=== PATIENT | female | born 1985 | race Caucasian/White ===

== ENCOUNTER 2017-01-20 08:41 | Day surgery (SDC) | payer SELFPAY, BC ==
[~2017-01-20 08:41] MED LIST: Bupivacaine 0.25%/EPINEPHrine 1:200,000 10 ML SDV ONE
[2017-01-20] MEDS ORDERED: Bupivacaine 0.25%/EPINEPHrine 1:200,000 10 ML SDV INJECT ONE (09:00)
--- NOTE | 2017-01-20 09:03 | PCM.PREANE ---
Preanesthetic Assessment - Anesthesia/Transfusion/Family Hx Anesthesia History: Prior Anesthesia Without Reaction Family History of Anesthesia Reaction: No Transfusion History: No Prior Transfusion(s) - Review of Systems General: No Symptoms Pulmonary: No Symptoms Cardiovascular: No Symptoms Gastrointestinal: No symptoms Neurological: No Symptoms Other: Reports: None - Physical Assessment Height: 1.75 m Weight: 120.202 kg ASA Class: 2 Mental Status: Alert & Oriented x3 Airway Class: Mallampati = 2 Dentition: Reports: Normal Dentition Thyro-Mental Finger Breadths: 3 Mouth Opening Finger Breadths: 3 ROM/Head Extension: Full Lungs: Clear to auscultation, Normal respiratory effort Cardiovascular: Regular Rate, Regular Rhythm - Allergies Allergies/Adverse Reactions: Allergies Allergy/AdvReac Type Severity Reaction Status Date / Time hydrocodone Allergy Chest Pain Verified 09/02/16 10:16 morphine Allergy Chest Pain Verified 09/02/16 10:16 - Blood Blood Available: No - Anesthesia Plan Pre-Op Medication Ordered: None - Acknowledgements Anesthesia Type Planned: General Anesthesia Pt an Appropriate Candidate for the Planned Anesthesia: Yes Alternatives and Risks of Anesthesia Discussed w Pt/Guardian: Yes Pt/Guardian Understands and Agrees with Anesthesia Plan: Yes PreAnesthesia Questionnaire - Past Health History Medical/Surgical History: Denies Medical/Surgical History HEENT History: Reports: None Cardiovascular History: Reports: High Cholesterol Respiratory History: Reports: None Gastrointestinal History: Reports: GERD Genitourinary History: Reports: None 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: Musculoskeletal History: Reports: Back Pain, Chronic, Neck Pain, Chronic, Other (See Below) (shoulder pain) Neurological History: Reports: Migraines Psychiatric History: Reports: Anxiety, Depression Endocrine/Metabolic History: Reports: Obesity/BMI 30+ (MBI 39.1) Dermatologic History: Reports: Eczema - Past Surgical History Head Surgeries/Procedures: Reports: None GI Surgical History: Reports: Cholecystectomy Female Surgical History: Reports: Section (x4), Hysterectomy - SUBSTANCE USE Smoking Status *Q: Never Smoker Second Hand Smoke Exposure: No Recreational Drug Use History: No - HOME MEDS Home Medications: Home Meds Omeprazole 40 cap PO DAILY 04/22/16 [History] buPROPion [Wellbutrin XL] 150 mg PO DAILY 01/16/17 [History] - CURRENT (IN HOUSE) MEDS Current Meds: Current Medications Hydrocodone Bitart/Acetaminophen ([place] 325-5 Mg) 1 tab PO Q4H PRN PRN Reason: Pain Lactated Ringer's (Ringers, Lactated) 1,000 mls @ 125 mls/hr IV ASDIRECTED MAHAD Cefazolin Sodium/Dextrose 2 gm (/ Premix) 50 mls @ 100 mls/hr IV ONETIME ONE Stop: 01/20/17 10:29 Discontinued Medications Bupivacaine HCl/Epinephrine Bitart (Marcaine 0.25%/Epinephrine 1:200,000) 20 ml INJECT ONETIME ONE Stop: 01/20/17 09:01 Bupivacaine HCl/Epinephrine Bitart (Marcaine 0.25%/Epinephrine 1:200,000) Confirm Administered Dose 50 ml .ROUTE .STK-MED ONE Stop: 01/20/17 07:34
[2017-01-20] MEDS: Lactated Ringers 1,000 ML IV SCH ×2 (09:11→18:32)
[2017-01-20] MEDS ORDERED: Lidocaine 2% 5 ML SDV ONE (09:45)
[2017-01-20] MEDS ORDERED: Ondansetron 4 MG/2 ML SDV ONE (09:45)
[2017-01-20] MEDS ORDERED: Midazolam 1 MG/ML 2 ML SDV ONE (09:45)
[2017-01-20] MEDS ORDERED: fentaNYL 250 MCG/5 ML SDV ONE (09:45)
[2017-01-20] MEDS ORDERED: Propofol 200 MG/20 ML SDV ONE (09:45)
[2017-01-20] MEDS ORDERED: Dexamethasone 4 MG/ML 5 ML MDV ONE (09:45)
[2017-01-20] MEDS ORDERED: diphenhydrAMINE 50 MG/ML SDV ONE (09:53)
[2017-01-20] MEDS ORDERED: ceFAZolin 2 GM in Premix Bag 1 BAG IV ONE (10:00)
[2017-01-20] MEDS ORDERED: HYDROmorphone 2 MG/ML Syringe ONE ×2 (11:07→11:38)
[2017-01-20] MEDS ORDERED: Rocuronium 10 MG/ML 10 ML Syringe ONE (11:07)
[2017-01-20] MEDS ORDERED: Scopolamine 1.5 MG Transdermal Patch ONE (11:22)
[2017-01-20] MEDS: fentaNYL 100 MCG/2 ML SDV IVPUSH PRN ×3 (14:45→15:05)
[2017-01-20] MEDS: Acetaminophen/HYDROcodone 325-5 MG Tab PO PRN (15:38)
[2017-01-20] MEDS: Ondansetron 4 MG/2 ML SDV IVPUSH PRN (15:59)
[2017-01-20] MEDS ORDERED: Prochlorperazine 5 MG in Sodium Chloride 0.9% 50 ML IV ONE (16:00)
--- NOTE | 2017-01-20 17:35 | PCM.POSTAN ---
POST ANESTHESIA ASSESSMENT - MENTAL STATUS Mental Status: alert, oriented - RESPIRATORY Respiratory Status: respiratory rate WNL, airway patent, O2 saturation stable - CARDIOVASCULAR CV Status: pulse rate WNL, blood pressure stable - GASTROINTESTINAL GI Status: nauseau - POST OP HYDRATION Hydration Status: adequate & stable
--- NOTE | 2017-01-20 17:36 | PCM48HPAN ---
Post Anesthesia Note - EVALUATION WITHIN 48HRS OF ANESTHETIC Vital Signs in Normal Range: Yes Patient Participated in Evaluation: Yes Respiratory Function Stable: Yes Airway Patent: Yes Cardiovascular Function Stable: Yes Hydration Status Stable: Yes Pain Control Satisfactory: Yes Nausea and Vomiting Control Satisfactory: Yes Mental Status Recovered: Yes
[2017-01-20] MEDS ORDERED: Prochlorperazine 10 MG/2 ML SDV IVPUSH PRN (18:32)
--- NOTE | 2017-01-20 19:26 | PCM.SN ---
- Free Text/Narrative Note: nausea not controlled thus admitting to the floor for sds status for improved control prior to discharge.
[2017-01-21] MEDS: Ondansetron 4 MG/2 ML SDV IVPUSH PRN (00:16)
[2017-01-21] MEDS: Acetaminophen/HYDROcodone 325-5 MG Tab PO PRN ×2 (00:18→08:53)
[2017-01-21] MEDS: Lactated Ringers 1,000 ML IV SCH (00:20)
[2017-01-21 05:24] VITALS: BP 128/58
--- NOTE | 2017-01-21 10:18 | PCM.SN ---
- Free Text/Narrative Note: Much improved and ready for discharge. Feeling well without nausea this am. Dressings removed. Excellent healing and skin flap viability. Home on [place] and zoan. Will call with any issues or concerns.
--- NOTE | 2017-01-21 10:22 | PCM48HPAN ---
Post Anesthesia Note - EVALUATION WITHIN 48HRS OF ANESTHETIC Vital Signs in Normal Range: Yes Patient Participated in Evaluation: Yes Respiratory Function Stable: Yes Airway Patent: Yes Cardiovascular Function Stable: Yes Hydration Status Stable: Yes Pain Control Satisfactory: Yes Nausea and Vomiting Control Satisfactory: Yes Mental Status Recovered: Yes - COMMENTS/OBSERVATIONS Free Text/Narrative:: Pt was kept overnight as observation over continued N/V that was unresponsive to IV treatment. This morning she is doing well and looking forward to going home.
--- NOTE | 2017-01-23 12:29 | PCM.OPNOTE ---
- General Post-Op/Procedure Note Date of Surgery/Procedure: 01/20/17 Operative Procedure(s): bilaateral reduction mammoplasty Pre Op Diagnosis: macromastia Post-Op Diagnosis: Same Anesthesia Technique: General ET Tube, Local Primary Surgeon: Zoë Gonzalez Entry Level Automotive Technician: Sherri Zarate Complications: None Condition: Good
--- NOTE | 2017-01-23 21:08 | OR ---
SURGEON: DUANE HERRERA MD DATE OF PROCEDURE: 01/20/2017 PREOPERATIVE DIAGNOSIS: Bilateral macromastia. POSTOPERATIVE DIAGNOSIS: Bilateral macromastia. PROCEDURE: Bilateral reduction mammoplasty - cosmetic. INDICATIONS: Ms. Norwood is a 31-year-old female with bilateral gigantomastia. Unfortunately, her insurance policy has a preclusion on breast reduction. She does meet all criteria for medical necessity. We discussed risks and benefits of reduction mammoplasty and will do so under a cosmetic rate. Risks and benefits of reduction mammoplasty were discussed with her and she was in agreement to proceed. Risks were including, but not limited to, bleeding, infection, damage to underlying or overlying structures, possible need for future interventions and possible scarring. NARRATIVE: After informed consent were obtained and placed on the chart, the patient was brought to the operating theater and laid in the supine position. After adequate general anesthetic was obtained, the area was prepped and draped in a normal fashion. Time-out was completed to confirm side and site. Attention was then paid to the markings made in the preanesthesia area for a bilateral inferior pedicle with Woodruff-pattern reduction. The nipple-areolar complex positions were marked around the nipple itself. Once adequately marked attention was then paid to dissection of the skin about 1 cm thick tapering to the chest wall medially and [address] to the chest wall laterally. Slightly thicker flaps were undertaken due to the size of the patient. Once adequately dissected, attention was then paid to isolation of the pedicle. Once this was completed, the intervening breast tissue was removed on the right and sent for pathology due to the presence of a cyst here. Once that was adequately excised and measured to be around 4800 grams, attention was then paid to the left side in a similar fashion. The dissection was undertaken with removal around 1300 grams. Once this was completed, the meticulous hemostasis had been obtained, the area was copiously irrigated and the new pedicle was put in place closing with evangelista. Once this was completed, the patient was sat up, symmetry was appreciated and the new area of the nipple-areolar complex was marked. Once this was completed, the patient was sat back in the supine position. The nipple-areolar complex was dissected and then stapled in place. Once adequate stapled in place, symmetry was again appreciated and then closure was undertaken using deep 3-0 Monocryl stitches and a running 4-0 subcuticular for the skin. Once adequately completed, attention was then paid to dressings with Steri-Strips, fluffs and a compression bra. The patient tolerated the procedure well. All counts and needles were correct at the end the case. FOLLOWUP INSTRUCTIONS: The patient will be maintained in the hospital for nausea control and was given a prescription for pain control and nausea medication as needed. HEMICHAEL / JOSE /[id number] MTDD
== END 2017-01-21 10:18 | disposition home or self-care (01) ==
LOC: MW.SDS 08:41 → MW.MS 17:56 → MW.SDS 01-21 10:18
PROVIDERS: ATTEND Plastic Surgery
PROC: 0H0V0ZZ Alteration of Bilateral Breast, Open Approach (ICD-10-PCS; principal; 2017-01-20)
DX: D24.1 Benign neoplasm of right breast (principal); N62 Hypertrophy of breast; K21.9 Gastro-esophageal reflux disease without esophagitis; F41.9 Anxiety disorder, unspecified; F32.9 Major depressive disorder, single episode, unspecified; E66.9 Obesity, unspecified; Z79.899 Other long term (current) drug therapy; Z88.5 Allergy status to narcotic agent; Z90.49 Acquired absence of other specified parts of digestive tract; Z90.710 Acquired absence of both cervix and uterus; Z98.890 Other specified postprocedural states; Z68.39 Body mass index [BMI] 39.0-39.9, adult
CPT/HCPCS: 19120; 19318; A9270; J0780; J1100; J1170; J1200; J2250; J2405; J3010; J7050; J7120; 00402; 88305; J2704

== ENCOUNTER 2017-05-22 13:10 | Day surgery (SDC) | payer BC ==
[2017-05-22] MEDS ORDERED: Ketorolac 30 MG/ML SDV IVPUSH ONE (14:12)
[2017-05-22] MEDS ORDERED: Sodium Chloride 0.9% 1,000 ML IV ONE (14:12)
--- NOTE | 2017-05-22 14:13 | EDM.PDOC ---
ED HPI GENERAL MEDICAL PROBLEM - General Chief Complaint: Abdominal Pain Stated Complaint: APPENDICITIS Time Seen by Provider: 05/22/17 13:37 Source of Information: Reports: Patient History Limitations: Reports: No Limitations - History of Present Illness INITIAL COMMENTS - FREE TEXT/NARRATIVE: History of present illness: [31-year-old female sent over by [facility] secondary to concerns of potential appendicitis. Patient acute she has had right lower quadrant pain radiating up to the umbilicus for approximately 1 week off and on in a sporadic fashion but now the pain is continuous. Patient also indicates it hurts more when it is being pressed but especially with the pressures relieved. Consist with rebound tenderness] Review of systems: As per history of present illness and below otherwise all systems reviewed and negative. Past medical history: As per history of present illness and as reviewed below otherwise noncontributory. Surgical history: As per history of present illness and as reviewed below otherwise noncontributory. Social history: No reported history of drug or alcohol abuse. Family history: As per history of present illness and as reviewed below otherwise noncontributory. Physical exam: HEENT: Atraumatic, normocephalic, pupils reactive, negative for conjunctival pallor or scleral icterus, mucous membranes moist, throat clear, neck supple, nontender, trachea midline. Lungs: Clear to auscultation, breath sounds equal bilaterally, chest nontender. Heart: S1S2, regular, negative for clicks, rubs, or JVD. Abdomen: Soft, exuberant abdomen that is tender in the right lower quadrant more specifically with rebound tenderness noted. Negative for masses or hepatosplenomegaly. Negative for costovertebral tenderness. Pelvis: Stable nontender. Genitourinary: Deferred. Rectal: Deferred. Extremities: Atraumatic, negative for cords or calf pain. Neurovascular unremarkable. Neuro: Awake, alert, oriented. Cranial nerves II through XII unremarkable. Cerebellum unremarkable. Motor and sensory unremarkable throughout. Exam nonfocal. Dr. Zaragoza at bedside is evaluating patient in dialogue with him about the plan of care. Patient indicates that she would rather have surgical resolution as opposed to conservative management Dr. Zaragoza agrees to do appendectomy. Diagnostics: [CBC, CMP, lipase amylase, urine hCG] Therapeutics: [IV fluid, Toradol] Impression: [Appendicitis] Plan: [Admit to Dr. Zaragoza for appendectomy] Definitive disposition and diagnosis as appropriate pending reevaluation and review of above. Right Lower Abdomen Pain Score (Numeric/FACES): 6 - Related Data Allergies Allergy/AdvReac Type Severity Reaction Status Date / Time morphine AdvReac Mild Chest Pain Verified 05/22/17 13:35 Home Meds: Home Meds . 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: Musculoskeletal History: Reports: Back Pain, Chronic, Neck Pain, Chronic, Other (See Below) (shoulder pain) Neurological History: Reports: Migraines Psychiatric History: Reports: Anxiety, Depression Endocrine/Metabolic History: Reports: Obesity/BMI 30+ (MBI 39.1) Dermatologic History: Reports: Eczema - Past Surgical History Head Surgeries/Procedures: Reports: None GI Surgical History: Reports: Cholecystectomy Female Surgical History: Reports: Section (x4), Hysterectomy Social & Family History - Family History Family Medical History: Noncontributory - Tobacco Use Smoking Status *Q: Never Smoker Second Hand Smoke Exposure: No - Caffeine Use Caffeine Use: Reports: None - Recreational Drug Use Recreational Drug Use: No Drug Use in Last 12 Months: No ED ROS GENERAL - Review of Systems Review Of Systems: See Below (See history of present illness) ED EXAM, GENERAL - Physical Exam Exam: See Below (See history of present illness) Course - Vital Signs Last Recorded V/S: Last Vital Signs Temp 36.8 C 05/22/17 13:33 Pulse 76 05/22/17 16:16 Resp 18 05/22/17 16:24 BP 140/86 05/22/17 16:16 Pulse Ox 98 05/22/17 16:24 - Orders/Labs/Meds Orders: Active Orders 24 hr Category Date Time Status Communication Order [RC] ROUTINE Care 05/22/17 16:56 Active Verify Patient Consent Obtain [RC] ASDIRECTED Care 05/22/17 16:21 Active Verify Patient Consent Obtain [RC] ASDIRECTED Care 05/22/17 16:55 Active Nothing per Oral After Midnight Diet [DIET] Diet 05/22/17 Breakfast Active Nothing per Oral Now Diet [DIET] Diet 05/22/17 Breakfast Active Lactated Ringers [Ringers, Lactated] 1,000 ml Med 05/22/17 16:30 Active IV ASDIRECTED Lactated Ringers [Ringers, Lactated] 1,000 ml Med 05/22/17 17:00 Active IV ASDIRECTED Scopolamine [Transderm-Scop] Med 05/22/17 16:59 Active 1.5 mg TRDERM Q72H PRN Sodium Chloride 0.9% [Saline Flush] Med 05/22/17 16:21 Active 10 ml FLUSH ASDIRECTED PRN Sodium Chloride 0.9% [Saline Flush] Med 05/22/17 16:21 Active 2.5 ml FLUSH ASDIRECTED PRN cefOXitin [Mefoxin in Dextrose,Iso-Osm 2 GM/50 ML] 2 gm Med 05/22/17 16:56 Pending Premix Bag 1 bag IV ONETIME Medication Administration Instruction [OM.PC] Routine Oth 05/22/17 16:21 Ordered Peripheral IV Insertion Adult [OM.PC] Routine Oth 05/22/17 16:21 Ordered Medication Orders Lactated Ringer's (Ringers, Lactated) 1,000 mls @ 125 mls/hr IV ASDIRECTED MAHAD Last Admin: 05/22/17 16:38 Dose: 125 mls/hr Cefoxitin Sodium 2 gm/ Premix 50 mls @ 100 mls/hr IV ONETIME ONE Stop: 05/22/17 17:25 Lactated Ringer's (Ringers, Lactated) 1,000 mls @ 150 mls/hr IV ASDIRECTED MAHAD Scopolamine (Transderm-Scop) 1.5 mg TRDERM Q72H PRN PRN Reason: PONV Sodium Chloride (Saline Flush) 10 ml FLUSH ASDIRECTED PRN PRN Reason: Keep Vein Open Sodium Chloride (Saline Flush) 2.5 ml FLUSH ASDIRECTED PRN PRN Reason: Keep Vein Open Labs: Laboratory Tests 05/22/17 05/22/17 05/22/17 Range/Units 14:41 14:41 15:27 WBC 6.04 (4.0-11.0) K/uL RBC 4.81 (4.30-5.90) M/uL Hgb 13.4 (12.0-16.0) g/dL Hct 39.3 (36.0-46.0) % MCV 81.7 (80.0-98.0) fL MCH 27.9 (27.0-32.0) pg MCHC 34.1 (31.0-37.0) g/dL RDW Std Deviation 41.7 (28.0-62.0) fl RDW Coeff of Jose 14 (11.0-15.0) % Plt Count 217 (150-400) K/uL MPV 9.20 (7.40-12.00) fL Neut % (Auto) 67.5 (48.0-80.0) % Lymph % (Auto) 23.2 (16.0-40.0) % [place] % (Auto) 7.1 (0.0-15.0) % Eos % (Auto) 2.0 (0.0-7.0) % Baso % (Auto) 0.2 (0.0-1.5) % Neut # (Auto) 4.1 (1.4-5.7) K/uL Lymph # (Auto) 1.4 (0.6-2.4) K/uL [place] # (Auto) 0.4 (0.0-0.8) K/uL Eos # (Auto) 0.1 (0.0-0.7) K/uL Baso # (Auto) 0.0 (0.0-0.1) K/uL Nucleated RBC % 0.0 /100WBC Nucleated RBCs # 0 K/uL Sodium 140 (136-146) mmol/L Potassium 3.8 (3.5-5.1) mmol/L Chloride 106 (98-110) mmol/L Carbon Dioxide 22 (21-31) mmol/L BUN 9 (6.0-23.0) mg/dL Creatinine 0.7 (0.6-1.5) mg/dL Est Cr Clr Drug Dosing 121.69 mL/min Estimated GFR (MDRD) > 60.0 ml/min Glucose 90 (60-110) mg/dL Calcium 9.5 (8.8-10.8) mg/dL Total Bilirubin 0.9 (0.1-1.5) mg/dL AST 40 (5-40) IU/L ALT 67 H (8-54) IU/L Alkaline Phosphatase 74 (40-150) Total Protein 7.6 (6.0-8.0) g/dL Albumin 4.0 (3.5-5.0) g/dL Globulin 3.6 H (2.0-3.5) g/dL Albumin/Globulin Ratio 1.1 L (1.3-2.8) Amylase 44 (10-90) U/L Lipase 15 (7-80) U/L Urine HCG, Qual NEGATIVE (NEGATIVE) Meds: Medications Generic Name Dose Route Start Last Admin Trade Name Ngoc PRN Reason Stop Dose Admin Lactated Ringer's 1,000 mls @ 125 mls/hr 05/22/17 16:30 05/22/17 16:38 Ringers, Lactated IV 125 mls/hr ASDIRECTED MAHAD Administration Cefoxitin Sodium 2 gm/ Premix 50 mls @ 100 mls/hr 05/22/17 16:56 IV 05/22/17 17:25 ONETIME ONE Lactated Ringer's 1,000 mls @ 150 mls/hr 05/22/17 17:00 Ringers, Lactated IV ASDIRECTED MAHAD Scopolamine 1.5 mg 05/22/17 16:59 Transderm-Scop TRDERM Q72H PRN PONV Sodium Chloride 10 ml 05/22/17 16:21 Saline Flush FLUSH ASDIRECTED PRN Keep Vein Open Sodium Chloride 2.5 ml 05/22/17 16:21 Saline Flush FLUSH ASDIRECTED PRN Keep Vein Open Discontinued Medications Generic Name Dose Route Start Last Admin Trade Name Ngoc PRN Reason Stop Dose Admin Famotidine 20 mg 05/22/17 16:59 Pepcid IVPUSH 05/22/17 17:00 ONETIME ONE Sodium Chloride 1,000 mls @ 999 mls/hr 05/22/17 14:12 05/22/17 14:41 Normal Saline IV 05/22/17 15:12 999 mls/hr STAT ONE Administration Bupivacaine HCl/Epinephrine Bitart Confirm 05/22/17 16:21 Sensorc Mpf 0.25%-Epi [id number] Administered 05/22/17 16:22 Dose 30 mls @ as directed .ROUTE .STK-MED ONE Ketorolac Tromethamine 30 mg 05/22/17 14:12 05/22/17 14:42 Toradol IVPUSH 05/22/17 14:13 30 mg ONETIME ONE Administration Octyl Cyanoacrylate Confirm 05/22/17 16:35 Dermabond Advance Administered 05/22/17 16:36 Dose 1 applic .ROUTE .STK-MED ONE Departure - Departure Time of Disposition: 17:05 Disposition: Still A Patient 30 Condition: Good Clinical Impression: Appendicitis - Discharge Information
[2017-05-22 15:11] LABS: CHLORIDE,CL 106 mmol/L (98-110); SODIUM,NA 140 mmol/L (136-146)
[2017-05-22] MEDS ORDERED: Bupivacaine 25%/EPINEPHrine/PF 30 ML ONE (16:21)
[2017-05-22] MEDS ORDERED: Sodium Chloride 0.9% 10 ML Syringe FLUSH PRN (16:21)
[2017-05-22] MEDS ORDERED: Sodium Chloride 0.9% 2.5 ML Syringe FLUSH PRN (16:21)
--- NOTE | 2017-05-22 16:24 | PCM.PREANE ---
Preanesthetic Assessment - Anesthesia/Transfusion/Family Hx Anesthesia History: Prior Anesthesia Without Reaction Transfusion History: No Prior Transfusion(s) - Review of Systems General: No Symptoms Pulmonary: No Symptoms Cardiovascular: No Symptoms Gastrointestinal: No Symptoms Neurological: No Symptoms Other: Reports: None - Physical Assessment O2 Sat by Pulse Oximetry: 98 Respiratory Rate: 18 Vital Signs: Last Vital Signs Temp 98.3 F 05/22/17 13:33 Pulse 76 05/22/17 16:16 Resp 18 05/22/17 16:16 BP 140/86 05/22/17 16:16 Pulse Ox 98 05/22/17 16:16 Height: 5 ft 9 in Weight: 123.6 kg ASA Class: 2E Mental Status: Alert & Oriented x3 Airway Class: Mallampati = 2 Dentition: Reports: Normal Dentition Thyro-Mental Finger Breadths: 3 Mouth Opening Finger Breadths: 3 ROM/Head Extension: Full Lungs: Clear to Auscultation, Normal Respiratory Effort Cardiovascular: Regular Rate, Regular Rhythm - Lab Values: Laboratory Last Values WBC 6.04 K/uL (4.0-11.0) 05/22/17 14:41 RBC 4.81 M/uL (4.30-5.90) 05/22/17 14:41 Hgb 13.4 g/dL (12.0-16.0) 05/22/17 14:41 Hct 39.3 % (36.0-46.0) 05/22/17 14:41 MCV 81.7 fL (80.0-98.0) 05/22/17 14:41 MCH 27.9 pg (27.0-32.0) 05/22/17 14:41 MCHC 34.1 g/dL (31.0-37.0) 05/22/17 14:41 RDW Std Deviation 41.7 fl (28.0-62.0) 05/22/17 14:41 RDW Coeff of Jose 14 % (11.0-15.0) 05/22/17 14:41 Plt Count 217 K/uL (150-400) 05/22/17 14:41 MPV 9.20 fL (7.40-12.00) 05/22/17 14:41 Neut % (Auto) 67.5 % (48.0-80.0) 05/22/17 14:41 Lymph % (Auto) 23.2 % (16.0-40.0) 05/22/17 14:41 [place] % (Auto) 7.1 % (0.0-15.0) 05/22/17 14:41 Eos % (Auto) 2.0 % (0.0-7.0) 05/22/17 14:41 Baso % (Auto) 0.2 % (0.0-1.5) 05/22/17 14:41 Neut # (Auto) 4.1 K/uL (1.4-5.7) 05/22/17 14:41 Lymph # (Auto) 1.4 K/uL (0.6-2.4) 05/22/17 14:41 [place] # (Auto) 0.4 K/uL (0.0-0.8) 05/22/17 14:41 Eos # (Auto) 0.1 K/uL (0.0-0.7) 05/22/17 14:41 Baso # (Auto) 0.0 K/uL (0.0-0.1) 05/22/17 14:41 Nucleated RBC % 0.0 /100WBC 05/22/17 14:41 Nucleated RBCs # 0 K/uL 05/22/17 14:41 Sodium 140 mmol/L (136-146) 05/22/17 14:41 Potassium 3.8 mmol/L (3.5-5.1) 05/22/17 14:41 Chloride 106 mmol/L (98-110) 05/22/17 14:41 Carbon Dioxide 22 mmol/L (21-31) 05/22/17 14:41 BUN 9 mg/dL (6.0-23.0) 05/22/17 14:41 Creatinine 0.7 mg/dL (0.6-1.5) 05/22/17 14:41 Est Cr Clr Drug Dosing 121.69 mL/min 05/22/17 14:41 Estimated GFR (MDRD) > 60.0 ml/min 05/22/17 14:41 Glucose 90 mg/dL (60-110) 05/22/17 14:41 Calcium 9.5 mg/dL (8.8-10.8) 05/22/17 14:41 Total Bilirubin 0.9 mg/dL (0.1-1.5) 05/22/17 14:41 AST 40 IU/L (5-40) 05/22/17 14:41 ALT 67 IU/L (8-54) H 05/22/17 14:41 Alkaline Phosphatase 74 (40-150) 05/22/17 14:41 Total Protein 7.6 g/dL (6.0-8.0) 05/22/17 14:41 Albumin 4.0 g/dL (3.5-5.0) 05/22/17 14:41 Globulin 3.6 g/dL (2.0-3.5) H 05/22/17 14:41 Albumin/Globulin Ratio 1.1 (1.3-2.8) L 05/22/17 14:41 Amylase 44 U/L (10-90) 05/22/17 14:41 Lipase 15 U/L (7-80) 05/22/17 14:41 Urine HCG, Qual NEGATIVE (NEGATIVE) 05/22/17 15:27 - Allergies Allergies/Adverse Reactions: Allergies Allergy/AdvReac Type Severity Reaction Status Date / Time morphine AdvReac Mild Chest Pain Verified 05/22/17 13:35 - Acknowledgements Anesthesia Type Planned: General Anesthesia Pt an Appropriate Candidate for the Planned Anesthesia: Yes Alternatives and Risks of Anesthesia Discussed w Pt/Guardian: Yes Pt/Guardian Understands and Agrees with Anesthesia Plan: Yes PreAnesthesia Questionnaire - Past Health History Medical/Surgical History: Denies Medical/Surgical History HEENT History: Reports: None Cardiovascular History: Reports: High Cholesterol Respiratory History: Reports: None Gastrointestinal History: Reports: GERD Genitourinary History: Reports: None 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 Para: 4 Musculoskeletal History: Reports: Back Pain, Chronic, Neck Pain, Chronic, Other (See Below) (shoulder pain) Neurological History: Reports: Migraines Psychiatric History: Reports: Anxiety, Depression Endocrine/Metabolic History: Reports: Obesity/BMI 30+ (BMI 39.1) Hematologic History: Reports: None Immunologic History: Reports: None Oncologic (Cancer) History: Reports: None Dermatologic History: Reports: Eczema - Past Surgical History Head Surgeries/Procedures: Reports: None GI Surgical History: Reports: Cholecystectomy Female Surgical History: Reports: Section (x4), Hysterectomy - SUBSTANCE USE Smoking Status *Q: Never Smoker Second Hand Smoke Exposure: No Recreational Drug Use History: No - HOME MEDS Home Medications: Home Meds . [No Known Home Meds] 05/22/17 [History] - CURRENT (IN HOUSE) MEDS Current Meds: Current Medications Lactated Ringer's (Ringers, Lactated) 1,000 mls @ 125 mls/hr IV ASDIRECTED MAHAD Sodium Chloride (Saline Flush) 10 ml FLUSH ASDIRECTED PRN PRN Reason: Keep Vein Open Sodium Chloride (Saline Flush) 2.5 ml FLUSH ASDIRECTED PRN PRN Reason: Keep Vein Open Discontinued Medications Sodium Chloride (Normal Saline) 1,000 mls @ 999 mls/hr IV STAT ONE Stop: 05/22/17 15:12 Last Admin: 05/22/17 14:41 Dose: 999 mls/hr Ketorolac Tromethamine (Toradol) 30 mg IVPUSH ONETIME ONE Stop: 05/22/17 14:13 Last Admin: 05/22/17 14:42 Dose: 30 mg
[2017-05-22] MEDS ORDERED: Lactated Ringers 1,000 ML IV SCH ×3 (16:30→19:15)
[2017-05-22] MEDS ORDERED: Octyl 2-Cyanoacrylate 1 Tube ONE (16:35)
[2017-05-22] MEDS ORDERED: cefOXitin 2 GM in Premix Bag 1 BAG IV ONE (16:56)
[2017-05-22] MEDS ORDERED: Scopolamine 1.5 MG Transdermal Patch TRDERM PRN (16:59)
[2017-05-22] MEDS ORDERED: Famotidine 20 MG/2 ML SDV IVPUSH ONE (16:59)
--- NOTE | 2017-05-22 17:00 | PCM.SN ---
- Free Text/Narrative Note: appendicitis at tip with stranding and pain X 1 wk; pt would benefit from appendectomy; with a BMI 40 and 272 lb, there is a possibility of not a candidate for lap surgery in our facility, then pt would get an open surgery; risks and benefits d w pt re bleeding/infection/damage to nearby organs/normal appendix; pt voiced understanding, proceed with appendectomy, lap vs open; h/p dictated
[2017-05-22] MEDS ORDERED: Rocuronium 10 MG/ML 10 ML Syringe ONE (17:11)
[2017-05-22] MEDS ORDERED: Propofol 200 MG/20 ML SDV ONE (17:11)
[2017-05-22] MEDS ORDERED: Midazolam 1 MG/ML 2 ML SDV ONE (17:11)
[2017-05-22] MEDS ORDERED: Succinylcholine/Normal Saline 200 MG/10 ML Syringe ONE (17:11)
[2017-05-22] MEDS ORDERED: Lidocaine 2% 5 ML SDV ONE (17:11)
[2017-05-22] MEDS ORDERED: fentaNYL 250 MCG/5 ML SDV ONE (17:11)
[2017-05-22] MEDS ORDERED: Ondansetron 4 MG/2 ML SDV ONE (17:11)
[2017-05-22] MEDS ORDERED: Scopolamine 1.5 MG Transdermal Patch ONE (17:41)
[2017-05-22] MEDS ORDERED: Neostigmine Methylsulfate 1 MG/ML 5 ML Syringe ONE (18:04)
[2017-05-22] MEDS ORDERED: Dexamethasone 4 MG/ML 5 ML MDV ONE (18:15)
[2017-05-22] MEDS ORDERED: fentaNYL 100 MCG/2 ML SDV IVPUSH PRN (18:22)
[2017-05-22] MEDS ORDERED: Phenylephrine/Normal Saline 100 MCG/ML 10 ML Syringe ONE (18:30)
[2017-05-22] MEDS ORDERED: fentaNYL 100 MCG/2 ML SDV ONE (18:33)
[2017-05-22] MEDS ORDERED: Acetaminophen/oxyCODONE 325-7.5 MG Tab PO PRN (19:06)
[2017-05-22] MEDS ORDERED: Ondansetron 4 MG/2 ML SDV IVPUSH PRN (19:07)
--- NOTE | 2017-05-22 19:15 | PCM.OPNOTE ---
- General Post-Op/Procedure Note Date of Surgery/Procedure: 05/22/17 Operative Procedure(s): lap appy Findings: appendix is hyperemic at the distal half, and a solid mass w the appearance of hemorrhagic cyst 1 X 0.9 cm was noted at the tip of the appendix dict [id number] Pre Op Diagnosis: acute appendicitis Post-Op Diagnosis: Same Anesthesia Technique: General ET Tube Primary Surgeon: Marcial Zaragoza Pathology: sent Complications: None Condition: Good Free Text/Narrative:: Intake & Output 05/22/17 05/22/17 05/22/17 06:59 14:59 22:59 Output Total 30 Balance -30
[2017-05-22] MEDS ORDERED: Morphine 4 MG/ML Syringe IVPUSH PRN (19:30)
--- NOTE | 2017-05-22 19:34 | PCM.POSTAN ---
POST ANESTHESIA ASSESSMENT - MENTAL STATUS Mental Status: Alert, Oriented - RESPIRATORY Respiratory Status: Respiratory Rate WNL, Airway Patent, O2 Saturation Stable - CARDIOVASCULAR CV Status: Pulse Rate WNL, Blood Pressure Stable - GASTROINTESTINAL GI Status: No Symptoms - POST OP HYDRATION Hydration Status: Adequate & Stable
[2017-05-23 00:10] VITALS: BP 131/65
--- NOTE | 2017-05-23 10:49 | HP ---
DATE OF : 1985 PRIMARY CARE PHYSICIAN: None PCP This is a consult from emergency room, Blayne Shea NP. CONCERNING QUESTION: Acute appendicitis at the tip. HISTORY OF PRESENT ILLNESS: The patient is a 31-year-old morbidly obese lady, weight 275 pounds, BMI of 40. Seen in emergency room for about 1-week history of periumbilical pain, subsequently migrated to the right lower quadrant. The patient said the pain was waxing and waning at first, comes and goes, on the pain scale of 5. In the last 2 days, getting much worse, became constant and hurting on the pain scale of 10, and when I see the patient in the emergency room, the patient was getting some pain medication, looks relatively comfortable. ALLERGIES: Please refer nursing for details. MEDICATIONS: Please refer nursing for details. SURGICAL HISTORY: x4 and also hysterectomy. PAST MEDICAL HISTORY: No diabetes, MA, CVA, hypertension, and the patient denies alcohol use. FAMILY HISTORY: Noncontributory. REVIEW OF SYSTEMS: Same as history of present illness. PHYSICAL EXAMINATION: GENERAL: A very pleasant, obese lady, , in no acute distress. HEENT: Normocephalic, atraumatic. Sclerae anicteric. LUNGS: Clear to auscultation. HEART: Regular rate and rhythm. ABDOMEN: Soft, nondistended. No pulsating, tender midline abdominal structure, well-healed laparoscopic surgical scar, exquisite tenderness in the right lower quadrant. No rebound tenderness, and also the patient hurts when she jumps. LABORATORY VALUE UPON CONSULTATION: White count 6,000. CAT scan shows appendicitis at the tip with stranding. IMPRESSION: Acute appendicitis, not very classic presentation. The patient has been hurting for 1 week, and in general, after 1 week appendix perforates; however, the CAT scan does reveal acute appendicitis, and the patient is hurting at the right spot, although the white count is 6,000. The patient is still deserved to have a timely intervention. Risks and benefits discussed with the patient including bleeding, infection, and damage to nearby organs, and also because of the patient's body habitus with a BMI of 40, there is 50:50 percent chance the instruments would not be able to get to the laparoscopic surgery. The patient would then have to revert to open surgery or another possibility is the patient can be transferred [facility] where they do bariatric surgery. All had been discussed with the patient. The patient preferred to proceed with surgery and preferred to proceed at our facility. Start IV line, put in the antibiotic, and proceed with surgery. BRADLEY / JOSE /[id number]
--- NOTE | 2017-05-23 10:58 | OR ---
SURGEON: Marcial Zaragoza MD DATE OF PROCEDURE: 05/22/2017 PREOPERATIVE DIAGNOSIS: Acute appendicitis. POSTOPERATIVE DIAGNOSIS: Acute appendicitis. PROCEDURE PERFORMED: Laparoscopic appendectomy. COMPLICATIONS: None. FINDING: The appendix is hyperemic at the distal half, and at the tip, there is kind of like a hemorrhagic cyst, but it is a solid mass. PROCEDURE PERFORMED: The patient was taken to the operating room and placed in the supine position. Following induction of general endotracheal anesthesia, the patient's abdomen was prepped and draped in the sterile fashion. A time-out has been called. The patient was identified. The procedure was identified. The antibiotics were identified. The procedure then proceeded. The abdomen was prepped and draped in a standard fashion. After assessment of appropriate Landmarks, a 12 millimeter trocar was inserted supraumbilically using Optiview and pneumoperitoneum was then achieved. This was followed with placement of 5 millimeter port in the right upper quadrant and another 5 millimeter port infraumbilically. The camera was inserted supraumbilical site and two laparoscopic [place] retractors were then inserted through the other two sites. Following the cecum, the appendix was located. The appendix was then lifted up, and using a GI stapler the appendix was amputated at the base. And using the GI stapler, the mesoappendix was then amputated. The appendix was retrieved by an endoscopic bag and sent for pathologist. This was then followed by re-insertion of the camera to examine the staple line, and hemostasis. The trocars were then removed. The umbilical site was closed with 2-0 Vicryl deep stitch and 4 -0 Vicryl and Dermabond; the other 2 5 mm port sites were closed with 4-0 Vicryl and Dermabond. The patient was then awakened, extubated, and transferred to the recovery room in hemodynamically stable condition. Prior to closing, sponge count and instrument count was correct. Dr. Zaragoza was present throughout the whole procedure. Intraoperative findings, as dictated above. At the conclusion, the appendix is out of body. A piece of Surgicel was put in to aid in hemostasis. As always, I thank you for your kind referral. BRADLEY / JOSE /[id number]
== END 2017-05-23 00:15 | disposition home or self-care (01) ==
LOC: MW.ED 13:10 → MW.SDS 16:29 → MW.MS 19:10 → MW.SDS 05-23 00:15
PROVIDERS: ATTEND Surgery
DX: K35.80 Unspecified acute appendicitis (principal); E78.00 Pure hypercholesterolemia, unspecified; K21.9 Gastro-esophageal reflux disease without esophagitis; F41.9 Anxiety disorder, unspecified; F32.9 Major depressive disorder, single episode, unspecified; E66.9 Obesity, unspecified; Z88.8 Allergy status to other drugs, medicaments and biological substances; Z79.899 Other long term (current) drug therapy; Z90.710 Acquired absence of both cervix and uterus; Z98.890 Other specified postprocedural states; Z68.39 Body mass index [BMI] 39.0-39.9, adult; Z90.49 Acquired absence of other specified parts of digestive tract; R10.31 Right lower quadrant pain; K76.9 Liver disease, unspecified
CPT/HCPCS: 36415; 44970; 74178; 80053; 81025; 82150; 83690; 85025; 88304; 96361; 96374; 96375; 99285; A9270; C1776; J1100; J1885; J2250; J2270; J2405; J3010; J7040; J7120; Q9967; 00840; 99283; J2704

== ENCOUNTER 2018-03-12 02:33 | Emergency (ER) | payer BC ==
--- NOTE | 2018-03-12 02:37 | EDM.PDOC ---
ED HPI GENERAL MEDICAL PROBLEM - General Stated Complaint: CHEST PAIN, LEFT ARM NUMB Time Seen by Provider: 03/12/18 02:36 Source of Information: Reports: Patient History Limitations: Reports: No Limitations - History of Present Illness INITIAL COMMENTS - FREE TEXT/NARRATIVE: HISTORY AND PHYSICAL: History of present illness: 32-year-old female presenting department with chief complaint of chest pain 1 hour. Patient states that around 1:30 AM this morning she awoke to left arm numbness as well as chest pain. She describes the chest pain as a burning sensation substernal and has been continuous currently 4-5 out of 10. States that she went to the bathroom initially to take some Nexium secondary to her history of GERD but her chest pain increased as well as her left arm still continued to be numb. She also had some associated lightheadedness, nausea but denies any diaphoresis or shortness of breath. Patient otherwise was feeling well previously. She does have 4 children so admits to a significant amount of stress however nothing out of the normal. She does report 1-2 months of suprapubic abdominal pain which she thinks maybe her ovaries. She has had a partial hysterectomy as well as appendectomy and cholecystectomy. She states that she does have some dysuria but denies any hematuria or flank pain. She also reports some mild low back pain that she's had chronically. Denies any previous history of cardiopulmonary disease or significant family hx of GA at a young age. She did have hypertension during her . She currently denies any palpitations, shortness of breath, syncopal episodes, or focal neurologic deficits. Initial EKG shows normal sinus rhythm with out any significant ST changes with a rate of 72. Chest pain is mildly reproducible on exam. CBC, CMP, UA, chest x-ray, INR unremarkable D-dimer mildly elevated at 0.65 secondary to symtoms a spiral CT ordered. Review of systems: As per history of present illness and below otherwise all systems reviewed and negative. Past medical history: As per history of present illness and as reviewed below otherwise noncontributory. Surgical history: As per history of present illness and as reviewed below otherwise noncontributory. Social history: No reported history of drug or alcohol abuse. Family history: As per history of present illness and as reviewed below otherwise noncontributory. Physical exam: HEENT: Atraumatic, normocephalic, pupils reactive, negative for conjunctival pallor or scleral icterus, mucous membranes moist, throat clear, neck supple, nontender, trachea midline. Lungs: Clear to auscultation, breath sounds equal bilaterally, chest nontender. Heart: S1S2, regular, negative for clicks, rubs, or JVD. Abdomen: Soft, nondistended, nontender. Negative for masses or hepatosplenomegaly. Negative for costovertebral tenderness. Pelvis: Stable nontender. Genitourinary: Deferred. Rectal: Deferred. Extremities: Atraumatic, negative for cords or calf pain. Neurovascular unremarkable. Neuro: Awake, alert, oriented. Cranial nerves II through XII unremarkable. Cerebellum unremarkable. Motor and sensory unremarkable throughout. Exam nonfocal. Diagnostics: CBC, CMP, troponin, INR, d-dimer, chest x-ray, EKG Therapeutics: ASA 324 mg Famotidine 20 mg IV 1 GI cocktail 1 Impression: Atypical chest pain GERD Plan: CBC, CMP, troponin, INR, chest x-ray, and EKG were all unremarkable. As above d- dimer was elevated. We did a CT angiogram which was negative for pulmonary emboli or infiltrate. This is explained to the patient. She most likely has GERD as she has a history of this. She has not been taking her Nexium that she has in the past which I instructed her to start again. I also recommended that she get an EGD, she has had this in the past but secondary to her continued symptoms is warranted. Patient was discharged in good condition with instructions to follow-up with primary care provider and return to emergency department if she had any new or worsening symptoms. Definitive disposition and diagnosis as appropriate pending reevaluation and review of above. Middle Chest Pain Score (Numeric/FACES): 5 - Related Data Allergies Allergy/AdvReac Type Severity Reaction Status Date / Time hydrocodone Allergy Chest Pain Verified 03/12/18 02:40 morphine AdvReac Mild Chest Pain Verified 05/22/17 13:35 Home Meds: Home Meds Esomeprazole Magnesium [Nexium 24Hr] 20 mg PO DAILY 03/12/18 [History] Past Medical History - Past Health History Medical/Surgical History: Denies Medical/Surgical History HEENT History: Reports: None Cardiovascular History: Reports: High Cholesterol Respiratory History: Reports: None Gastrointestinal History: Reports: GERD Genitourinary History: Reports: None 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: Musculoskeletal History: Reports: Back Pain, Chronic, Neck Pain, Chronic, Other (See Below) (shoulder pain) Neurological History: Reports: Migraines Psychiatric History: Reports: Anxiety, Depression Endocrine/Metabolic History: Reports: Obesity/BMI 30+ (MBI 39.1) Hematologic History: Reports: None Immunologic History: Reports: None Oncologic (Cancer) History: Reports: None Dermatologic History: Reports: Eczema - Past Surgical History Head Surgeries/Procedures: Reports: None GI Surgical History: Reports: Cholecystectomy Female Surgical History: Reports: Section (x4), Hysterectomy Social & Family History - Family History Family Medical History: Noncontributory - Caffeine Use Caffeine Use: Reports: None ED ROS GENERAL - Review of Systems Review Of Systems: See Below ED EXAM, GENERAL - Physical Exam Exam: See Below Course - Vital Signs Last Recorded V/S: Last Vital Signs Temp 99.6 F 03/12/18 02:44 Pulse 92 03/12/18 02:44 Resp 20 03/12/18 02:44 BP 165/121 H 03/12/18 02:44 Pulse Ox 97 03/12/18 02:44 - Orders/Labs/Meds Orders: Active Orders 24 hr Category Date Time Status Cardiac Monitoring [RC] . DIRECTED Care 03/12/18 02:48 Active EKG Documentation Completion [RC] STAT Care 03/12/18 02:48 Active Oxygen Therapy [RC] ASDIRECTED Care 03/12/18 02:48 Active Pulse Oximetry [RC] ASDIRECTED Care 03/12/18 02:48 Active Chest 1V Frontal [CR] Stat Exams 03/12/18 02:48 Taken Chest PE [Ang Chest] [CT] Stat Exams 03/12/18 03:26 Taken UA W/MICROSCOPIC [URIN] Stat Lab 03/12/18 03:10 Ordered Sodium Chloride 0.9% [Saline Flush] Med 03/12/18 02:48 Active 10 ml FLUSH ASDIRECTED PRN Sodium Chloride 0.9% [Saline Flush] Med 03/12/18 02:48 Active 2.5 ml FLUSH ASDIRECTED PRN Sodium Chloride 0.9% [Saline Flush] Med 03/12/18 02:48 Active 2.5 ml FLUSH ASDIRECTED PRN Saline Lock Insert [OM.PC] Stat Oth 03/12/18 02:48 Ordered Medication Orders Sodium Chloride (Saline Flush) 2.5 ml FLUSH ASDIRECTED PRN PRN Reason: Keep Vein Open Last Admin: 03/12/18 02:56 Dose: 2.5 ml Sodium Chloride (Saline Flush) 10 ml FLUSH ASDIRECTED PRN PRN Reason: Keep Vein Open Last Admin: 03/12/18 02:56 Dose: 10 ml Sodium Chloride (Saline Flush) 2.5 ml FLUSH ASDIRECTED PRN PRN Reason: Keep Vein Open Last Admin: 03/12/18 02:56 Dose: 2.5 ml Labs: Laboratory Tests 03/12/18 03/12/18 03/12/18 Range/Units 02:40 02:40 02:40 WBC 7.48 (4.0-11.0) K/uL RBC 4.65 (4.30-5.90) M/uL Hgb 13.4 (12.0-16.0) g/dL Hct 39.5 (36.0-46.0) % MCV 84.9 (80.0-98.0) fL MCH 28.8 (27.0-32.0) pg MCHC 33.9 (31.0-37.0) g/dL RDW Std Deviation 39.1 (28.0-62.0) fl RDW Coeff of Jose 13 (11.0-15.0) % Plt Count 236 (150-400) K/uL MPV 9.50 (7.40-12.00) fL Neut % (Auto) 66.2 (48.0-80.0) % Lymph % (Auto) 21.1 (16.0-40.0) % Mower % (Auto) 7.5 (0.0-15.0) % Eos % (Auto) 4.9 (0.0-7.0) % Baso % (Auto) 0.3 (0.0-1.5) % Neut # (Auto) 5.0 (1.4-5.7) K/uL Lymph # (Auto) 1.6 (0.6-2.4) K/uL Mower # (Auto) 0.6 (0.0-0.8) K/uL Eos # (Auto) 0.4 (0.0-0.7) K/uL Baso # (Auto) 0.0 (0.0-0.1) K/uL Nucleated RBC % 0.0 /100WBC Nucleated RBCs # 0 K/uL INR 0.91 D-Dimer, Quantitative 0.65 H (0.0-0.52) mg/LFEU Sodium 138 (136-145) mmol/L Potassium 3.9 (3.5-5.1) mmol/L Chloride 103 (98-107) mmol/L Carbon Dioxide 27.2 (21.0-32.0) mmol/L BUN 12 (7.0-18.0) mg/dL Creatinine 0.7 (0.6-1.0) mg/dL Est Cr Clr Drug Dosing 120.58 mL/min Estimated GFR (MDRD) > 60.0 ml/min Glucose 121 H (74-106) mg/dL Calcium 8.9 (8.5-10.1) mg/dL Total Bilirubin 0.5 (0.2-1.0) mg/dL AST 26 (15-37) IU/L ALT 45 (14-63) IU/L Alkaline Phosphatase 90 (46-116) U/L Troponin I < 0.050 (0.000-0.056) ng/mL Total Protein 7.4 (6.4-8.2) g/dL Albumin 3.5 (3.4-5.0) g/dL Globulin 3.9 H (2.0-3.5) g/dL Albumin/Globulin Ratio 0.9 L (1.3-2.8) Lipase 184 (73-393) U/L Urine Color Urine Appearance Urine pH (5.0-8.0) Ur Specific Lamont (1.001-1.035) Urine Protein (NEGATIVE) mg/dL Urine Glucose (UA) (NEGATIVE) mg/dL Urine Ketones (NEGATIVE) mg/dL Urine Occult Blood (NEGATIVE) Urine Nitrite (NEGATIVE) Urine Bilirubin (NEGATIVE) Urine Urobilinogen (<2.0) EU/dL Ur Leukocyte Esterase (NEGATIVE) Urine RBC (0-2/HPF) Urine WBC (0-5/HPF) Ur Epithelial Cells (NONE-FEW) Urine Bacteria (NEGATIVE) Urine Mucus (NONE-MOD) 03/12/18 Range/Units 03:10 WBC (4.0-11.0) K/uL RBC (4.30-5.90) M/uL Hgb (12.0-16.0) g/dL Hct (36.0-46.0) % MCV (80.0-98.0) fL MCH (27.0-32.0) pg MCHC (31.0-37.0) g/dL RDW Std Deviation (28.0-62.0) fl RDW Coeff of Jose (11.0-15.0) % Plt Count (150-400) K/uL MPV (7.40-12.00) fL Neut % (Auto) (48.0-80.0) % Lymph % (Auto) (16.0-40.0) % Mower % (Auto) (0.0-15.0) % Eos % (Auto) (0.0-7.0) % Baso % (Auto) (0.0-1.5) % Neut # (Auto) (1.4-5.7) K/uL Lymph # (Auto) (0.6-2.4) K/uL Mower # (Auto) (0.0-0.8) K/uL Eos # (Auto) (0.0-0.7) K/uL Baso # (Auto) (0.0-0.1) K/uL Nucleated RBC % /100WBC Nucleated RBCs # K/uL INR D-Dimer, Quantitative (0.0-0.52) mg/LFEU Sodium (136-145) mmol/L Potassium (3.5-5.1) mmol/L Chloride (98-107) mmol/L Carbon Dioxide (21.0-32.0) mmol/L BUN (7.0-18.0) mg/dL Creatinine (0.6-1.0) mg/dL Est Cr Clr Drug Dosing mL/min Estimated GFR (MDRD) ml/min Glucose (74-106) mg/dL Calcium (8.5-10.1) mg/dL Total Bilirubin (0.2-1.0) mg/dL AST (15-37) IU/L ALT (14-63) IU/L Alkaline Phosphatase (46-116) U/L Troponin I (0.000-0.056) ng/mL Total Protein (6.4-8.2) g/dL Albumin (3.4-5.0) g/dL Globulin (2.0-3.5) g/dL Albumin/Globulin Ratio (1.3-2.8) Lipase (73-393) U/L Urine Color YELLOW Urine Appearance SLT CLOUDY Urine pH 6.5 (5.0-8.0) Ur Specific Lamont 1.010 (1.001-1.035) Urine Protein NEGATIVE (NEGATIVE) mg/dL Urine Glucose (UA) NEGATIVE (NEGATIVE) mg/dL Urine Ketones NEGATIVE (NEGATIVE) mg/dL Urine Occult Blood NEGATIVE (NEGATIVE) Urine Nitrite NEGATIVE (NEGATIVE) Urine Bilirubin NEGATIVE (NEGATIVE) Urine Urobilinogen 0.2 (<2.0) EU/dL Ur Leukocyte Esterase NEGATIVE (NEGATIVE) Urine RBC 0-2 (0-2/HPF) Urine WBC 2-4 (0-5/HPF) Ur Epithelial Cells FEW (NONE-FEW) Urine Bacteria FEW (NEGATIVE) Urine Mucus FEW (NONE-MOD) Meds: Medications Generic Name Dose Route Start Last Admin Trade Name Ngoc PRN Reason Stop Dose Admin Sodium Chloride 2.5 ml 03/12/18 02:48 03/12/18 02:56 Saline Flush FLUSH 2.5 ml ASDIRECTED PRN Administration Keep Vein Open Sodium Chloride 10 ml 03/12/18 02:48 03/12/18 02:56 Saline Flush FLUSH 10 ml ASDIRECTED PRN Administration Keep Vein Open Sodium Chloride 2.5 ml 03/12/18 02:48 03/12/18 02:56 Saline Flush FLUSH 2.5 ml ASDIRECTED PRN Administration Keep Vein Open Discontinued Medications Generic Name Dose Route Start Last Admin Trade Name Ngoc PRN Reason Stop Dose Admin Aspirin 324 mg 03/12/18 02:48 03/12/18 02:54 Aspirin PO 03/12/18 02:49 324 mg ONETIME ONE Administration Al Hydroxide/Mg Hydroxide 15 0 ml 03/12/18 02:48 03/12/18 02:55 ml/ Metoclopramide HCl 5 mg/ PO 03/12/18 02:49 25 each Lidocaine HCl 5 ml ONETIME ONE Administration Famotidine 20 mg 03/12/18 02:48 03/12/18 02:55 Pepcid IVPUSH 03/12/18 02:49 20 mg ONETIME ONE Administration Sodium Chloride 1,000 mls @ 999 mls/hr 03/12/18 02:48 03/12/18 02:55 Normal Saline IV 03/12/18 03:48 999 mls/hr BOLUS ONE Administration Iopamidol 50 ml 03/12/18 03:54 03/12/18 03:55 Isovue Multipack-370 (76%) IVPUSH 03/12/18 03:55 50 ml ONETIME STA Administration Departure - Departure Time of Disposition: 05:16 Disposition: Home, Self-Care 01 Condition: Good Clinical Impression: Atypical chest pain GERD (gastroesophageal reflux disease) Qualifiers: Esophagitis presence: esophagitis presence not specified Qualified Code(s): K21.9 - Gastro-esophageal reflux disease without esophagitis - Discharge Information Referrals: Ancelmo Gonzalez MD [Primary Care Provider] - Additional Instructions: My general discharge The following information is given to patients seen in the emergency department who are being discharged to home. This information is to outline your options for follow-up care. We provide all patients seen in our emergency department with a follow-up referral. The need for follow-up, as well as the timing and circumstances, are variable depending upon the specifics of your emergency department visit. If you don't have a primary care physician on staff, we will provide you with a referral. We always advise you to contact your personal physician following an emergency department visit to inform them of the circumstance of the visit and for follow-up with them and/or the need for any referrals to a consulting specialist. The emergency department will also refer you to a specialist when appropriate. This referral assures that you have the opportunity for follow-up care with a specialist. All of these measure are taken in an effort to provide you with optimal care, which includes your follow-up. Under all circumstances we always encourage you to contact your private physician who remains a resource for coordinating your care. When calling for follow-up care, please make the office aware that this follow-up is from your recent emergency room visit. If for any reason you are refused follow-up, please contact the [facility] Emergency Department at and asked to speak to the emergency department charge nurse. [facility] [address] [place] [id number] [facility] - [facility] [address] [place] [id number] Please follow-up with primary care provider. He can call one of the above numbers and tell them that you were seen in emergency department and they wish for you to be seen as soon as possible. Take your Nexium as prescribed. As we discussed the most likely would and if it for an additional EGD. Return to emergency department if any new or worsening symptoms. - My Orders Last 24 Hours: My Active Orders 03/12/18 02:48 Cardiac Monitoring [RC] . DIRECTED EKG Documentation Completion [RC] STAT Oxygen Therapy [RC] ASDIRECTED Pulse Oximetry [RC] ASDIRECTED Chest 1V Frontal [CR] Stat Sodium Chloride 0.9% [Saline Flush] 10 ml FLUSH ASDIRECTED PRN Sodium Chloride 0.9% [Saline Flush] 2.5 ml FLUSH ASDIRECTED PRN Sodium Chloride 0.9% [Saline Flush] 2.5 ml FLUSH ASDIRECTED PRN Saline Lock Insert [OM.PC] Stat 03/12/18 03:10 UA W/MICROSCOPIC [URIN] Stat 03/12/18 03:26 Chest PE [Ang Chest] [CT] Stat - Assessment/Plan Last 24 Hours: My Active Orders 03/12/18 02:48 Cardiac Monitoring [RC] . DIRECTED EKG Documentation Completion [RC] STAT Oxygen Therapy [RC] ASDIRECTED Pulse Oximetry [RC] ASDIRECTED Chest 1V Frontal [CR] Stat Sodium Chloride 0.9% [Saline Flush] 10 ml FLUSH ASDIRECTED PRN Sodium Chloride 0.9% [Saline Flush] 2.5 ml FLUSH ASDIRECTED PRN Sodium Chloride 0.9% [Saline Flush] 2.5 ml FLUSH ASDIRECTED PRN Saline Lock Insert [OM.PC] Stat 03/12/18 03:10 UA W/MICROSCOPIC [URIN] Stat 03/12/18 03:26 Chest PE [Ang Chest] [CT] Stat
[2018-03-12 02:44] VITALS: BP 165/121
[2018-03-12] MEDS ORDERED: Sodium Chloride 0.9% 1,000 ML IV ONE (02:48)
[2018-03-12] MEDS ORDERED: Sodium Chloride 0.9% 2.5 ML Syringe FLUSH PRN ×2 (02:48)
[2018-03-12] MEDS ORDERED: Aspirin 81 MG Tab.Chew PO ONE (02:48)
[2018-03-12] MEDS ORDERED: Alum Hydrox/Mag Hydrox/Simeth 15 ML, Metoclopramide 5 MG, Lidocaine 2% 5 ML PO ONE ×3 (02:48)
[2018-03-12] MEDS ORDERED: Sodium Chloride 0.9% 10 ML Syringe FLUSH PRN (02:48)
[2018-03-12] MEDS ORDERED: Famotidine 20 MG/2 ML SDV IVPUSH ONE (02:48)
[2018-03-12 03:13] LABS: CHLORIDE,CL 103 mmol/L (98-107); SODIUM,NA 138 mmol/L (136-145)
[2018-03-12] MEDS ORDERED: Iopamidol 755 MG/ML 200 ML Multipack Bottle IVPUSH STA (03:54)
--- NOTE | 2018-03-12 14:33 | CR ---
EXAM DATE: 03/12/18 PATIENT'S AGE: 32 Patient: RANDAL ALATORRE Facility: [place], [place] Site . Site : 1985 Study: XRay Chest [id number]/3/2018 3:02:56 AM Ordering Physician: Marshall Kelley Final Report: INDICATION: chest pain TECHNIQUE: AP chest film submitted. COMPARISON: Chest x-ray 09/02/2016. FINDINGS: Heart size and pulmonary vasculature within normal limits. Lung erazo are clear. IMPRESSION: No active disease. Dictated by Juwan Crouch MD @ 03/12/2018 4:19:21 AM Dictated by: Juwan Crouch MD @ 03/12/2018 04:19:28 (Electronic Signature) Report Signed by Proxy. SHERYL
--- NOTE | 2018-03-12 14:34 | CT ---
EXAM DATE: 03/12/18 PATIENT'S AGE: 32 Patient: RANDAL ALATORRE Facility: [place], [place] Site . Site : 1985 Study: CT Chest Angio [id number]/3/2018 3:52:37 AM Ordering Physician: Marshall Kelley Final Report: INDICATION: chest pain, elevated d-dimer TECHNIQUE: Helical scans obtained through the chest after administration of 50 mL of Isovue -370 intravenously. COMPARISON: CT pulmonary angiogram 09/02/2016. FINDINGS: 1. No filling defects are identified in the pulmonary arteries centrally. Opacification of the pulmonary arterial tree is not optimal and therefore, subsegmental pulmonary emboli cannot be excluded. 2. Heart size is normal. No arterial calcification. No evidence for aneurysm of the thoracic aorta. 3. Lung erazo are clear. 4. No thoracic adenopathy. 5. No bony abnormalities are detected. IMPRESSION: No evidence for pulmonary emboli in the central pulmonary arteries. No pulmonary infiltrates. Subsegmental pulmonary emboli cannot be excluded since the subsegmental pulmonary arteries are not optimally opacified on this exam. Dictated by Juwan Crouch MD @ 03/12/2018 5:03:35 AM Dictated by: Juwan Crouch MD @ 03/12/2018 05:03:40 (Electronic Signature) Report Signed by Proxy. SHERYL
== END 2018-03-12 05:30 | disposition home or self-care (01) ==
LOC: MW.ED 02:33
DX: R07.89 Other chest pain (principal); K21.9 Gastro-esophageal reflux disease without esophagitis; E78.00 Pure hypercholesterolemia, unspecified; Z88.5 Allergy status to narcotic agent; Z79.899 Other long term (current) drug therapy
CPT/HCPCS: 36415; 71045; 71275; 80053; 81001; 83690; 84484; 85025; 85379; 85610; 93005; 96361; 96374; 99285; A9270; J3490; J7040; Q9967

== ENCOUNTER 2018-09-27 15:23 | Emergency (ER) | payer BC ==
[2018-09-27] MEDS ORDERED: Ketorolac 60 MG/2 ML SDV ONE (15:38)
[2018-09-27] MEDS ORDERED: diphenhydrAMINE 50 MG/ML SDV ONE (15:47)
[2018-09-27] MEDS ORDERED: Metoclopramide 10 MG/2 ML SDV ONE (15:47)
[2018-09-27] MEDS ORDERED: Ketorolac 30 MG/ML SDV ONE (15:47)
[2018-09-27] MEDS ORDERED: Ondansetron 4 MG/2 ML SDV ONE (15:47)
[2018-09-27] MEDS ORDERED: Sodium Chloride 0.9% 2.5 ML Syringe FLUSH PRN (15:48)
[2018-09-27] MEDS ORDERED: diphenhydrAMINE 50 MG/ML SDV IVPUSH ONE (15:48)
[2018-09-27] MEDS ORDERED: Ketorolac 30 MG/ML SDV IVPUSH ONE (15:48)
[2018-09-27] MEDS ORDERED: Sodium Chloride 0.9% 10 ML Syringe FLUSH PRN (15:48)
[2018-09-27] MEDS ORDERED: Metoclopramide 10 MG/2 ML SDV IVPUSH ONE (15:48)
[2018-09-27] MEDS ORDERED: Sodium Chloride 0.9% 1,000 ML IV ONE (15:48)
[2018-09-27] MEDS ORDERED: Ondansetron 4 MG/2 ML SDV IVPUSH ONE (15:48)
--- NOTE | 2018-09-27 15:55 | EDM.PDOC ---
ED HPI GENERAL MEDICAL PROBLEM - General Chief Complaint: Chest Pain Stated Complaint: UNK Time Seen by Provider: 09/27/18 15:48 Source of Information: Reports: Patient History Limitations: Reports: No Limitations - History of Present Illness INITIAL COMMENTS - FREE TEXT/NARRATIVE: HISTORY AND PHYSICAL: History of present illness: Patient is a 33-year-old female here with complaint of chest pain. He states she has history of chest pain on and off for the past 7 years and has had extensive workup done and has been seen at [facility] for this. She reports this current bout of pain has been for the past 2 days. She states the pain is midsternal and occasionally radiates to her back which is her typical pain. She does have history of reflux but states this is different as it is more of a sharp pain rather than burning. She denies shortness of breath, diaphoresis, cough, nausea, vomiting, abdominal pain. She reports she has had a migraine as well for the past couple of days. She does have history of migraines and this is not new or worse than her typical headache. She states she has been stressed recently and she thinks that may have triggered her headache and chest pain. Review of systems: As per history of present illness and below otherwise all systems reviewed and negative. Past medical history: As per history of present illness and as reviewed below otherwise noncontributory. Surgical history: As per history of present illness and as reviewed below otherwise noncontributory. Social history: No reported history of drug or alcohol abuse. Family history: As per history of present illness and as reviewed below otherwise noncontributory. Physical exam: General: Patient sitting comfortably in no acute distress and nontoxic appearing HEENT: Atraumatic, normocephalic, pupils reactive, negative for conjunctival pallor or scleral icterus, mucous membranes moist, throat clear, neck supple, nontender, trachea midline. No meningeal signs. Lungs: Clear to auscultation, breath sounds equal bilaterally, tenderness to palpation of sternum. Heart: S1S2, regular, negative for clicks, rubs, or overt murmur. Abdomen: Soft, nondistended, nontender. Negative for masses or hepatosplenomegaly. Negative for costovertebral tenderness. No rigidity, rebound , guarding. Pelvis: Stable nontender. Genitourinary: Deferred. Rectal: Deferred. Extremities: Atraumatic, negative for cords or calf pain. Neurovascular unremarkable. Neuro: Awake, alert, oriented. Cranial nerves II through XII unremarkable. Cerebellum unremarkable. Motor and sensory unremarkable throughout. Exam nonfocal. Notes: Patient states her pain is 1/10 after therapeutics Diagnostics: CBC, CMP, troponin, EKG, chest x-ray Therapeutics: 1L normal saline IV 30mg Toradol IV 4mg Zofran IV 10mg Reglan IV 50mg Benadryl IV Prescriptions: Impression: Chest wall pain, headache Plan: 1. Drink plenty of fluids and rest as instructed. Alternate Tylenol and Motrin as needed. 2. Follow-up with primary care provider 3. Return to ED as needed as discussed Definitive disposition and diagnosis as appropriate pending reevaluation and review of above. headache Pain Score (Numeric/FACES): 5 chest pain Pain Score (Numeric/FACES): 4 - Related Data Allergies Allergy/AdvReac Type Severity Reaction Status Date / Time morphine Allergy Mild Chest Pain Verified 06/13/18 12:55 hydrocodone Allergy Chest Pain Verified 06/13/18 12:55 Home Meds: Home Meds Dicyclomine [Bentyl] 10 mg PO BID 06/13/18 [History] Omeprazole 40 mg PO BID 06/13/18 [History] Past Medical History - Past Health History Medical/Surgical History: Denies Medical/Surgical History HEENT History: Reports: None Cardiovascular History: Reports: High Cholesterol Respiratory History: Reports: None Gastrointestinal History: Reports: GERD, Hiatal Hernia Other Gastrointestinal History: has bile reflux Genitourinary History: Reports: None [employer] History: Reports: Musculoskeletal History: Reports: Back Pain, Chronic, Neck Pain, Chronic Neurological History: Reports: Migraines (rare) Psychiatric History: Reports: Anxiety Endocrine/Metabolic History: Reports: Obesity/BMI 30+ (BMI 42) Hematologic History: Reports: None Immunologic History: Reports: None Oncologic (Cancer) History: Reports: None Dermatologic History: Reports: Eczema - Past Surgical History Head Surgeries/Procedures: Reports: None HEENT Surgical History: Reports: Adenoidectomy, Myringotomy w Tube(s), Tonsillectomy GI Surgical History: Reports: Appendectomy, Cholecystectomy Female Surgical History: Reports: Breast Reduction, Section, Hysterectomy Other Female Surgeries/Procedures: x 4; Hysterectomy and salphingectomy, bilateral Social & Family History - Family History Family Medical History: Noncontributory - Caffeine Use Caffeine Use: Reports: None ED ROS GENERAL - Review of Systems Review Of Systems: ROS reveals no pertinent complaints other than HPI. ED EXAM, GENERAL - Physical Exam Exam: See Below (see dictation) Course - Vital Signs Last Recorded V/S: Last Vital Signs Temp Pulse 106 H 09/27/18 16:00 Resp 18 09/27/18 16:00 BP 169/75 H 09/27/18 16:00 Pulse Ox 97 09/27/18 16:00 - Orders/Labs/Meds Orders: Active Orders 24 hr Category Date Time Status Sodium Chloride 0.9% [Saline Flush] Med 09/27/18 15:48 Active 10 ml FLUSH ASDIRECTED PRN Sodium Chloride 0.9% [Saline Flush] Med 09/27/18 15:48 Active 2.5 ml FLUSH ASDIRECTED PRN Saline Lock Insert [OM.PC] Stat Oth 09/27/18 15:48 Ordered Medication Orders Sodium Chloride (Saline Flush) 10 ml FLUSH ASDIRECTED PRN PRN Reason: Keep Vein Open Sodium Chloride (Saline Flush) 2.5 ml FLUSH ASDIRECTED PRN PRN Reason: Keep Vein Open Labs: Laboratory Tests 09/27/18 09/27/18 Range/Units 16:08 16:08 WBC 7.64 (4.0-11.0) K/uL RBC 4.96 (4.30-5.90) M/uL Hgb 14.7 (12.0-16.0) g/dL Hct 42.3 (36.0-46.0) % MCV 85.3 (80.0-98.0) fL MCH 29.6 (27.0-32.0) pg MCHC 34.8 (31.0-37.0) g/dL RDW Std Deviation 39.1 (28.0-62.0) fl RDW Coeff of Jose 13 (11.0-15.0) % Plt Count 250 (150-400) K/uL MPV 9.60 (7.40-12.00) fL Neut % (Auto) 66.3 (48.0-80.0) % Lymph % (Auto) 19.9 (16.0-40.0) % [place] % (Auto) 10.3 (0.0-15.0) % Eos % (Auto) 3.4 (0.0-7.0) % Baso % (Auto) 0.1 (0.0-1.5) % Neut # (Auto) 5.1 (1.4-5.7) K/uL Lymph # (Auto) 1.5 (0.6-2.4) K/uL [place] # (Auto) 0.8 (0.0-0.8) K/uL Eos # (Auto) 0.3 (0.0-0.7) K/uL Baso # (Auto) 0.0 (0.0-0.1) K/uL Nucleated RBC % 0.0 /100WBC Nucleated RBCs # 0 K/uL Sodium 138 (136-145) mmol/L Potassium 3.9 (3.5-5.1) mmol/L Chloride 105 (98-107) mmol/L Carbon Dioxide 25.4 (21.0-32.0) mmol/L BUN 7 (7.0-18.0) mg/dL Creatinine 0.7 (0.6-1.0) mg/dL Est Cr Clr Drug Dosing 107.01 mL/min Estimated GFR (MDRD) > 60.0 ml/min Glucose 97 (74-106) mg/dL Calcium 9.3 (8.5-10.1) mg/dL Total Bilirubin 0.6 (0.2-1.0) mg/dL AST 36 (15-37) IU/L ALT 104 H (14-63) IU/L Alkaline Phosphatase 71 (46-116) U/L Troponin I < 0.050 (0.000-0.056) ng/mL Total Protein 8.0 (6.4-8.2) g/dL Albumin 3.8 (3.4-5.0) g/dL Globulin 4.2 H (2.6-4.0) g/dL Albumin/Globulin Ratio 0.9 (0.9-1.6) Meds: Medications Generic Name Dose Route Start Last Admin Trade Name Freq PRN Reason Stop Dose Admin Sodium Chloride 10 ml 09/27/18 15:48 Saline Flush FLUSH ASDIRECTED PRN Keep Vein Open Sodium Chloride 2.5 ml 09/27/18 15:48 Saline Flush FLUSH ASDIRECTED PRN Keep Vein Open Discontinued Medications Generic Name Dose Route Start Last Admin Trade Name Ngoc PRN Reason Stop Dose Admin Diphenhydramine HCl 50 mg 09/27/18 15:48 09/27/18 16:29 Benadryl IVPUSH 09/27/18 15:49 50 mg ONETIME ONE Administration Diphenhydramine HCl Confirm 09/27/18 15:47 09/27/18 16:34 Benadryl Administered 09/27/18 15:48 Not Given Dose 50 mg .ROUTE .STK-MED ONE Sodium Chloride 1,000 mls @ 999 mls/hr 09/27/18 15:48 09/27/18 16:15 Normal Saline IV 09/27/18 16:48 999 mls/hr .Bolus ONE Administration Ketorolac Tromethamine 30 mg 09/27/18 15:48 09/27/18 16:29 Toradol IVPUSH 09/27/18 15:49 30 mg ONETIME ONE Administration Ketorolac Tromethamine Confirm 09/27/18 15:38 09/27/18 16:33 Toradol Administered 09/27/18 15:39 Not Given Dose 60 mg .ROUTE .STK-MED ONE Ketorolac Tromethamine Confirm 09/27/18 15:47 09/27/18 16:33 Toradol Administered 09/27/18 15:48 Not Given Dose 30 mg .ROUTE .STK-MED ONE Metoclopramide HCl 10 mg 09/27/18 15:48 09/27/18 16:29 Reglan IVPUSH 09/27/18 15:49 10 mg ONETIME ONE Administration Metoclopramide HCl Confirm 09/27/18 15:47 09/27/18 16:33 Reglan Administered 09/27/18 15:48 Not Given Dose 10 mg .ROUTE .STK-MED ONE Ondansetron HCl 4 mg 09/27/18 15:48 09/27/18 16:29 Zofran IVPUSH 09/27/18 15:49 4 mg ONETIME ONE Administration Ondansetron HCl Confirm 09/27/18 15:47 09/27/18 16:46 Zofran Administered 09/27/18 15:48 Not Given Dose 4 mg .ROUTE .STK-MED ONE Departure - Departure Time of Disposition: 17:03 Disposition: Home, Self-Care 01 Condition: Good Clinical Impression: Chest wall pain, Headache Forms: ED Department Discharge Additional Instructions: The following information is given to patients seen in the emergency department who are being discharged to home. This information is to outline your options for follow-up care. We provide all patients seen in our emergency department with a follow-up referral. The need for follow-up, as well as the timing and circumstances, are variable depending upon the specifics of your emergency department visit. If you don't have a primary care physician on staff, we will provide you with a referral. We always advise you to contact your personal physician following an emergency department visit to inform them of the circumstance of the visit and for follow-up with them and/or the need for any referrals to a consulting specialist. The emergency department will also refer you to a specialist when appropriate. This referral assures that you have the opportunity for follow-up care with a specialist. All of these measure are taken in an effort to provide you with optimal care, which includes your follow-up. Under all circumstances we always encourage you to contact your private physician who remains a resource for coordinating your care. When calling for follow-up care, please make the office aware that this follow-up is from your recent emergency room visit. If for any reason you are refused follow-up, please contact the [facility] Emergency Department at and asked to speak to the emergency department charge nurse. [facility] Primary Care [address] [place] [id number] [place] [address] 1. Drink plenty of fluids and rest as instructed. Alternate Tylenol and Motrin as needed. 2. Follow-up with primary care provider 3. Return to ED as needed as discussed - My Orders Last 24 Hours: My Active Orders 09/27/18 15:48 Sodium Chloride 0.9% [Saline Flush] 10 ml FLUSH ASDIRECTED PRN Sodium Chloride 0.9% [Saline Flush] 2.5 ml FLUSH ASDIRECTED PRN Saline Lock Insert [OM.PC] Stat - Assessment/Plan Last 24 Hours: My Active Orders 09/27/18 15:48 Sodium Chloride 0.9% [Saline Flush] 10 ml FLUSH ASDIRECTED PRN Sodium Chloride 0.9% [Saline Flush] 2.5 ml FLUSH ASDIRECTED PRN Saline Lock Insert [OM.PC] Stat
--- NOTE | 2018-09-27 16:37 | CR ---
EXAMINATION: Portable chest radiograph. HISTORY: Chest pain. FINDINGS: The trachea is midline. The cardiomediastinal silhouette is within normal limits. No pulmonary infiltrates, effusions or pneumothorax. Osseous structures appear unremarkable. IMPRESSION: No acute cardiopulmonary process.
[2018-09-27 16:43] LABS: CHLORIDE,CL 105 mmol/L (98-107); SODIUM,NA 138 mmol/L (136-145)
[2018-09-27 17:37] VITALS: BP 126/77
== END 2018-09-27 17:20 | disposition home or self-care (01) ==
LOC: MW.ED 15:23
DX: R07.89 Other chest pain (principal); R51 Headache; F41.9 Anxiety disorder, unspecified; K21.9 Gastro-esophageal reflux disease without esophagitis; E78.00 Pure hypercholesterolemia, unspecified; Z88.5 Allergy status to narcotic agent; Z88.6 Allergy status to analgesic agent; Z79.899 Other long term (current) drug therapy
CPT/HCPCS: 36415; 71045; 80053; 84484; 85025; 93005; 96361; 96374; 96375; 99285; J1200; J1885; J2405; J2765; J7040; 99283

== ENCOUNTER 2023-12-13 15:25 | Emergency (ER) | payer BC, OTHER ==
[2023-12-13 16:07] LABS: BASOPHILS ABSOLUTE AUTO 0.03 K/uL (0.00-0.20); BASOPHILS PERCENT AUTO 0.4 % (0.0-1.0); EOSINOPHILS ABSOLUTE AUTO 0.06 K/uL (0.00-0.45); EOSINOPHILS PERCENT AUTO 0.8 % (0.0-6.0); HEMATOCRIT 39.7 % (37.0-47.0); HEMOGLOBIN 13.3 g/dL (12.0-16.0); IMMATURE GRAN ABSOLUTE AUTO 0.03 K/uL (0.00-0.05); IMMATURE GRAN PERCENT AUTO 0.4 % (0.0-0.4); LYMPHOCYTES ABSOLUTE AUTO 1.25 K/uL (1.00-4.80); LYMPHOCYTES PERCENT AUTO 17.4 % (24.0-44.0); MEAN CORPUSCULAR HGB CONC 33.5 g/dL (32.0-36.0); MEAN CORPUSCULAR VOLUME 83.6 fL (83.0-99.0); MONOCYTES ABSOLUTE AUTO 0.66 K/uL (0.00-0.80); MONOCYTES PERCENT AUTO 9.2 % (0.0-8.0); NEUTROPHILS ABSOLUTE AUTO 5.14 K/uL (1.80-7.70); NEUTROPHILS PERCENT AUTO 71.8 % (41.0-71.0); PLATELET COUNT,PLT 224 K/uL (150-400); RED BLOOD CELL COUNT 4.75 M/uL (4.10-5.30); WHITE BLOOD CELL COUNT,WBC 7.17 K/uL (3.9-11.3)
[2023-12-13 16:56] LABS: CALCIUM 8.7 mg/dL (8.5-10.1); CARBON DIOXIDE,CO2 28.2 mmol/L (21.0-32.0); CREATININE 0.8 mg/dL (0.6-1.0); EST CRCL DRUG DOSING (CG) 96.18 mL/min; POTASSIUM,K 4.1 mmol/L (3.5-5.1)
[2023-12-13 17:44] VITALS: BP 127/89; PULSE 79
== END 2023-12-13 17:44 | disposition home or self-care (01) ==
LOC: MW.ED 15:25
DX: M25.512 Pain in left shoulder (principal); R07.89 Other chest pain; E78.00 Pure hypercholesterolemia, unspecified; K21.9 Gastro-esophageal reflux disease without esophagitis; Z88.5 Allergy status to narcotic agent; Z79.899 Other long term (current) drug therapy; Z90.49 Acquired absence of other specified parts of digestive tract; Z90.710 Acquired absence of both cervix and uterus
CPT/HCPCS: 36415; 80048; 84484; 85025; 93005; 93010; 99282; 99285

== ENCOUNTER 2024-03-01 17:31 | Emergency (ER) | payer OTHER ==
[2024-03-01 17:52] LABS: BASOPHILS ABSOLUTE AUTO 0.01 K/uL (0.00-0.20); BASOPHILS PERCENT AUTO 0.2 % (0.0-1.0); EOSINOPHILS ABSOLUTE AUTO 0.24 K/uL (0.00-0.45); EOSINOPHILS PERCENT AUTO 3.6 % (0.0-6.0); HEMATOCRIT 36.1 % (37.0-47.0); HEMOGLOBIN 12.6 g/dL (12.0-16.0); LYMPHOCYTES ABSOLUTE AUTO 1.41 K/uL (1.00-4.80); LYMPHOCYTES PERCENT AUTO 21.2 % (24.0-44.0); MEAN CORPUSCULAR HEMOGLOBIN 28.6 pg (28.0-32.0); MEAN CORPUSCULAR HGB CONC 34.9 g/dL (32.0-36.0); MEAN PLATELET VOLUME 9.3 fL (9.4-12.3); MONOCYTES ABSOLUTE AUTO 0.63 K/uL (0.00-0.80); MONOCYTES PERCENT AUTO 9.5 % (0.0-8.0); NEUTROPHILS ABSOLUTE AUTO 4.37 K/uL (1.80-7.70); NEUTROPHILS PERCENT AUTO 65.5 % (41.0-71.0); PLATELET COUNT,PLT 206 K/uL (150-400); WHITE BLOOD CELL COUNT,WBC 6.66 K/uL (3.9-11.3)
[2024-03-01] MEDS: Sodium Chloride 0.9% 1,000 ML IV ONE (17:52)
[2024-03-01] MEDS: Alum Hydro/Mag Hydro/Simeth XS 15 ML, Metoclopramide 5 MG, Lidocaine 2% 5 ML PO ONE (17:53)
[2024-03-01 18:16] LABS: ALBUMIN 3.6 g/dL (3.4-5.0); BILIRUBIN TOTAL 0.5 mg/dL (0.2-1.0); CARBON DIOXIDE,CO2 27.5 mmol/L (21.0-32.0); CREATININE 0.7 mg/dL (0.6-1.0); EST CRCL DRUG DOSING (CG) 105.97 mL/min; POTASSIUM,K 3.9 mmol/L (3.5-5.1); PROTEIN TOTAL,TP 7.2 g/dL (6.4-8.2)
[2024-03-01] MEDS: Ondansetron 4 MG/2 ML SDV IVPUSH ONE (18:21)
[2024-03-01] MEDS: Ketorolac 30 MG/ML SDV IVPUSH ONE (18:21)
[2024-03-01 20:30] LABS: APPEARANCE,URINE CLEAR; BILIRUBIN,URINE NEGATIVE (NEGATIVE); COLOR,URINE YELLOW; GLUCOSE,URINE NEGATIVE (NEGATIVE); KETONES,URINE NEGATIVE (NEGATIVE); LEUKOCYTE ESTERASE,URINE NEGATIVE (NEGATIVE); NITRITE,URINE NEGATIVE (NEGATIVE); OCCULT BLOOD,URINE NEGATIVE (NEGATIVE); PROTEIN,URINE NEGATIVE (NEGATIVE)
[2024-03-01 21:03] VITALS: BP 142/92; PULSE 96
== END 2024-03-01 21:01 | disposition home or self-care (01) ==
LOC: MW.ED 17:31
DX: R10.9 Unspecified abdominal pain (principal); E78.00 Pure hypercholesterolemia, unspecified; K21.9 Gastro-esophageal reflux disease without esophagitis; Z90.49 Acquired absence of other specified parts of digestive tract; Z88.5 Allergy status to narcotic agent; Z79.899 Other long term (current) drug therapy; Z90.710 Acquired absence of both cervix and uterus
CPT/HCPCS: 36415; 71045; 74176; 80053; 81003; 83690; 85025; 93005; 96361; 96374; 96375; 99284; A9270; J1885; J2405; J7030; 93010

== ENCOUNTER 2024-03-03 20:53 | Emergency (ER) | payer OTHER ==
[2024-03-03] MEDS: Sodium Chloride 0.9% 1,000 ML IV ONE (21:20)
[2024-03-03] MEDS: Sodium Chloride 0.9% 10 ML Syringe FLUSH PRN (21:20)
[2024-03-03] MEDS: Sodium Chloride 0.9% 2.5 ML Syringe FLUSH PRN (21:20)
[2024-03-03 21:30] LABS: BASOPHILS ABSOLUTE AUTO 0.01 K/uL (0.00-0.20); BASOPHILS PERCENT AUTO 0.1 % (0.0-1.0); EOSINOPHILS ABSOLUTE AUTO 0.02 K/uL (0.00-0.45); EOSINOPHILS PERCENT AUTO 0.2 % (0.0-6.0); HEMATOCRIT 39.8 % (37.0-47.0); IMMATURE GRAN ABSOLUTE AUTO 0.02 K/uL (0.00-0.05); IMMATURE GRAN PERCENT AUTO 0.2 % (0.0-0.4); LYMPHOCYTES ABSOLUTE AUTO 1.64 K/uL (1.00-4.80); LYMPHOCYTES PERCENT AUTO 20.3 % (24.0-44.0); MEAN CORPUSCULAR HEMOGLOBIN 28.7 pg (28.0-32.0); MEAN CORPUSCULAR HGB CONC 35.2 g/dL (32.0-36.0); MEAN CORPUSCULAR VOLUME 81.6 fL (83.0-99.0); MEAN PLATELET VOLUME 9.2 fL (9.4-12.3); MONOCYTES PERCENT AUTO 8.7 % (0.0-8.0); NEUTROPHILS PERCENT AUTO 70.5 % (41.0-71.0); PLATELET COUNT,PLT 268 K/uL (150-400); RED BLOOD CELL COUNT 4.88 M/uL (4.10-5.30); WHITE BLOOD CELL COUNT,WBC 8.09 K/uL (3.9-11.3)
[2024-03-03 21:56] LABS: A/G RATIO 0.9 (0.9-1.6); ALBUMIN 3.8 g/dL (3.4-5.0); CALCIUM 9.3 mg/dL (8.5-10.1); CARBON DIOXIDE,CO2 27.6 mmol/L (21.0-32.0); CREATININE 0.8 mg/dL (0.6-1.0); EST CRCL DRUG DOSING (CG) 92.72 mL/min; POTASSIUM,K 4.3 mmol/L (3.5-5.1)
[2024-03-03] MEDS: Acetaminophen 500 MG Tab PO ONE (22:15)
[2024-03-03] MEDS: Lactulose Soln 10 GM/15 ML 15 ML UD Cup PO ONE (22:16)
[2024-03-03 22:27] VITALS: BP 134/99; PULSE 92
== END 2024-03-03 22:25 | disposition home or self-care (01) ==
LOC: MW.ED 20:53
DX: K59.00 Constipation, unspecified (principal); K21.9 Gastro-esophageal reflux disease without esophagitis; E66.9 Obesity, unspecified; Z90.49 Acquired absence of other specified parts of digestive tract; Z90.710 Acquired absence of both cervix and uterus; Z79.899 Other long term (current) drug therapy; Z88.5 Allergy status to narcotic agent; Z68.41 Body mass index [BMI] 40.0-44.9, adult
CPT/HCPCS: 36415; 74022; 80053; 83690; 85025; 93005; 96360; 99284; A9270; J3490; J7030; 93010

== ENCOUNTER 2024-04-16 08:50 | Day surgery (SDC) | payer OTHER ==
[~2024-04-16 08:50] MED LIST changes: -Bupivacaine 0.25%/EPINEPHrine 1:200,000 10 ML SDV ONE; +Sodium Chloride 0.9% 10 ML Syringe FLUSH PRN; +Sodium Chloride 0.9% 2.5 ML Syringe FLUSH PRN; +Sodium Chloride 0.9% 20 ML SDV IV PRN
[2024-04-16] MEDS ORDERED: Lidocaine 2% 5 ML SDV INJECT ONE (08:51)
[2024-04-16] MEDS: Lactated Ringers 1,000 ML IV SCH (09:40)
[2024-04-16] MEDS ORDERED: propofoL 50 ML ONE (10:36)
[2024-04-16] MEDS ORDERED: Propofol 200 MG/20 ML SDV ONE (11:12)
[2024-04-16 12:08] VITALS: BP 132/93; PULSE 63
== END 2024-04-16 12:30 | disposition home or self-care (01) ==
LOC: MW.SDS 08:50
PROVIDERS: ATTEND Surgery
DX: K21.00 Gastro-esophageal reflux disease with esophagitis, without bleeding (principal); K29.50 Unspecified chronic gastritis without bleeding; K31.7 Polyp of stomach and duodenum; F41.9 Anxiety disorder, unspecified; E66.01 Morbid (severe) obesity due to excess calories
CPT/HCPCS: 43239; 45380; J2704; J7120; 00813; J3490